=== PATIENT | male | born 1955 | race American Indian/Alaskan Native ===

== ENCOUNTER 2017-04-22 16:05 | Emergency (ER) | payer MEDICARE ==
[2017-04-22 17:07] LABS: Hematocrit 40.2 % (35.5-45.6); Hemoglobin 12.7 gm/dl (11.8-15.2); Mean Corpuscular HGB Conc 32 % (32-34); Mean Corpuscular Hemoglobin 27 pg (28-32); Mean Corpuscular Volume 85 fl (84-94); Platelet Count 284 K/mm3 (140-440); Red Blood Count 4.71 M/mm3 (3.65-5.03); White Blood Count 15.7 K/mm3 (4.5-11.0)
[2017-04-22 17:10] LABS: Red Cell Distribution Width 21.3 % (13.2-15.2)
[2017-04-22 17:16] LABS: INR 1.08 (0.87-1.13)
[2017-04-22 17:17] LABS: Partial Thromboplastin Time 33.2 Sec. (24.2-36.6)
[2017-04-22 17:18] LABS: Anion Gap 20 mmol/L; BUN/Creatinine Ratio 11.11; Blood Urea Nitrogen 10 mg/dL (9-20); Calcium 9.9 mg/dL (8.4-10.2); Carbon Dioxide 24 mmol/L (22-30); Chloride 98.9 mmol/L (98-107); Glucose 201 mg/dL (75-100); Potassium 4.4 mmol/L (3.6-5.0); Sodium 138 mmol/L (137-145)
--- NOTE | 2017-04-22 17:38 | Cat Scan Report ---
FINAL REPORT EXAM: CT CHEST WO CON HISTORY: sob/swelling/pain to L rib area TECHNIQUE: CT of chest without IV contrast. Coronal and sagittal reconstructed images provided. PRIORS: CT abdomen and pelvis November 15, 2016. FINDINGS: No pneumothorax. No effusion. No consolidation. No endobronchial lesion. Subtle areas of interseptal thickening and ground-glass opacities in the dependent areas of the lung bases. Small cystic changes in the left lower lung. [id number] centrilobular emphysema. Main pulmonary arteries are unremarkable. No aortic aneurysm. Heart size unremarkable. No pericardial effusion. A few prominent subcentimeter mediastinal lymph nodes. One of the larger lymph nodes measures 10 x 10 mm. Slightly dense lymph node in the mediastinum on series 2:101 measures 12 x 10 mm. No significant adenopathy. No mass. Hilar regions are relatively unremarkable. Images of the esophagus are unremarkable. Low-density lesion in the left liver on series 2:211 measures 25 x 19 mm. Another low-density lesion in the left liver on series 2:240 measures 9.3 mm. Lesions are unchanged compared to the prior. Low-density cortical lesion in the upper right kidney measures 12 mm. Nodular hyperplasia of both adrenal glands noted. Attenuation suggest adenomas. Series 200:108 and series 2:177 demonstrates asymmetrical larger and of the left serratus muscles with heterogeneous internal attenuation. Overall size measures 13 x 29 x 40 mm. No fluid collection identified. No rim enhancing fluid collection noted. No adjacent rib fractures or bony destruction is evident. Prominent right breast lymph node on series 2:33 measures 11 x 6 mm. Few right thoracic lymph nodes also noted measuring 8 x 7 mm. In the tail the pancreas on series 2:216 there is a complex cystic lesion with internal septations measuring 26 x 32 mm. This lesion is smaller compared to the prior. Previously seen pancreatic cystic lesion not clearly evident on this CT scan. No suspicious osseous lesions on this limited examination of the skeleton. Metastatic disease better evaluated with bone scan. Degenerative changes are present in the spine. IMPRESSION: Asymmetrical enlargement of the left surround this musculature. Findings are indeterminate and may represent an intramuscular contusion, hematoma, myositis, or malignancy. Minimal pneumonitis suspected in the dependent areas of both lung bases. Emphysema. Few prominent right axillary and right thoracic lymph nodes. Few prominent subcentimeter mediastinal lymph nodes. Overall nonspecific. Nonspecific low-density lesions in the liver. Stable compared to the prior. Nodular hyperplasia of both adrenal glands suggesting adenomas which appears similar to prior. Complex cystic lesion in the tail the pancreas. Decreased size compared to prior but indeterminate
[2017-04-22 17:53] LABS: Basophils % (Manual) 0 % (0.0-1.8); Blastocytes % (Manual) 0 %; Eosinophils % (Manual) 0 % (0.0-4.3)
[2017-04-22 17:54] LABS: Anisocytosis 1+; Diff Status Complete; Platelet Estimate Cons
[2017-04-22 18:41] LABS: Alanine Aminotransferase 14 units/L (7-56); Albumin 4.1 g/dL (3.9-5); Albumin/Globulin Ratio 1.2 %; Alkaline Phosphatase 128 units/L (35-129); Creatine Kinase 255 units/L (55-170); Total Protein 7.4 g/dL (6.3-8.2)
[2017-04-22] MEDS ORDERED: DILAUDID IV ONE (18:44)
[2017-04-22] MEDS ORDERED: NACL 0.9% 1000 ML 1,000 ML IV ONE (18:45)
[2017-04-22 18:49] LABS: Bilirubin,Direct < 0.2 mg/dL (0-0.2)
[2017-04-22] MEDS ORDERED: NACL ONE (19:06)
--- NOTE | 2017-04-22 20:10 | Emergency Department Report ---
ED General Adult HPI - General Chief complaint: Pain General Stated complaint: SWELLING ON L SIDE Time Seen by Provider: 04/22/17 18:45 Source: patient Mode of arrival: Ambulatory Limitations: No Limitations - History of Present Illness Initial comments: Pt is a 62 yr old male with a h/o HTN, chronic pancreatitis, and DM who presents with a mass to the left upper back. Pt reports he was just sitting watching TV when he noticed this forming mass right by his scapula. Pt denies any trauma or anticoagulants. Pt has never had any mass in this area before. Upon arrival at approximately 1600 it was the size of an acorn, now at 2013 it is approximately the size of a grapefruit. Otherwise no fevers, chills. ZAMORA, NVD , abd pain, SOB, chest pain, midline back pain, urinary or bowel incontinence, travel, or sick contacts. Severity scale (0 -10): 7 - Related Data Home Medications Medication Instructions Recorded Confirmed Last Taken Metformin HCl [Glucophage] 1,000 mg PO BID 04/22/17 04/22/17 Unknown Previous Rx's Medication Instructions Recorded Last Taken Type Acetaminophen [Acetaminophen TAB] 650 mg PO Q4H PRN #60 tablet 11/19/16 Unknown Rx Metoprolol [Lopressor TAB] 50 mg PO BID #60 tablet 11/19/16 Unknown Rx amLODIPine [Norvasc] 5 mg PO QDAY #30 tablet 11/19/16 Unknown Rx traMADol [Ultram 50 MG tab] 50 mg PO Q6HR PRN #30 tablet 11/19/16 Unknown Rx Allergies Allergy/AdvReac Type Severity Reaction Status Date / Time morphine Allergy Unknown Verified 11/02/16 07:08 ED Review of Systems ROS: Stated complaint: SWELLING ON L SIDE Other details as noted in HPI Comment: All other systems reviewed and negative ED Past Medical Hx - Past Medical History Hx Hypertension: Yes Hx Diabetes: Yes Hx Arthritis: Yes Additional medical history: pancreatitis - Surgical History Additional Surgical History: right shoulder. Stent placed stomach - Social History Smoking Status: Current Every Day Smoker Substance Use Type: None - Medications Home Medications: Home Medications Medication Instructions Recorded Confirmed Last Taken Type Acetaminophen [Acetaminophen TAB] 650 mg PO Q4H PRN #60 tablet 11/19/16 Unknown Rx Metoprolol [Lopressor TAB] 50 mg PO BID #60 tablet 11/19/16 04/22/17 Unknown Rx amLODIPine [Norvasc] 5 mg PO QDAY #30 tablet 11/19/16 04/22/17 Unknown Rx traMADol [Ultram 50 MG tab] 50 mg PO Q6HR PRN #30 tablet 11/19/16 04/22/17 Unknown Rx Metformin HCl [Glucophage] 1,000 mg PO BID 04/22/17 04/22/17 Unknown History ED Physical Exam - General Limitations: No Limitations General appearance: alert, in no apparent distress - Head Head exam: Present: atraumatic, normocephalic - Eye Eye exam: Present: normal appearance - ENT ENT exam: Present: mucous membranes moist - Neck Neck exam: Present: normal inspection - Respiratory Respiratory exam: Present: normal lung sounds bilaterally. Absent: respiratory distress - Cardiovascular Cardiovascular Exam: Present: regular rate, normal rhythm. Absent: systolic murmur, diastolic murmur, rubs, gallop - GI/Abdominal GI/Abdominal exam: Present: soft, normal bowel sounds - Rectal Rectal exam: Present: deferred - Extremities Exam Extremities exam: Present: normal inspection - Back Exam Back exam: Present: full ROM, tenderness (over the enlarged mass over the serratus muscle on the left . Firm, tender, no bruit, or pulsatile mass palpated ) - Neurological Exam Neurological exam: Present: alert, oriented X3 - Psychiatric Psychiatric exam: Present: normal affect, normal mood - Skin Skin exam: Present: warm, dry, intact, normal color. Absent: rash ED Course Vital Signs 04/22/17 04/22/17 04/22/17 16:15 18:53 19:00 Temperature 98.1 F Pulse Rate 87 73 Respiratory 16 17 Rate Blood Pressure 169/104 147/82 O2 Sat by Pulse 100 99 100 Oximetry 04/22/17 04/22/17 04/22/17 21:30 21:31 21:33 Temperature Pulse Rate 72 76 69 Respiratory 17 20 13 Rate Blood Pressure 146/94 146/94 O2 Sat by Pulse 96 98 Oximetry 04/22/17 04/22/17 04/22/17 21:35 21:37 21:39 Temperature Pulse Rate 70 71 72 Respiratory 14 14 19 Rate Blood Pressure 146/94 146/94 146/94 O2 Sat by Pulse 97 96 97 Oximetry 04/22/17 04/22/17 04/22/17 21:41 21:43 21:45 Temperature Pulse Rate 74 70 71 Respiratory 13 19 18 Rate Blood Pressure 146/94 146/94 146/94 O2 Sat by Pulse 96 96 94 Oximetry 04/22/17 04/22/17 04/22/17 21:47 21:49 21:51 Temperature Pulse Rate 75 71 84 Respiratory 14 15 18 Rate Blood Pressure 146/94 146/94 146/94 O2 Sat by Pulse 96 96 97 Oximetry 04/22/17 04/22/17 04/22/17 21:53 21:55 21:57 Temperature Pulse Rate 68 69 66 Respiratory 14 15 14 Rate Blood Pressure 146/94 146/94 146/94 O2 Sat by Pulse 97 96 96 Oximetry 04/22/17 21:59 Temperature Pulse Rate 64 Respiratory 17 Rate Blood Pressure 146/94 O2 Sat by Pulse 96 Oximetry ED Medical Decision Making - Lab Data Result diagrams: 04/22/17 16:45 04/22/17 16:45 - EKG Data -: EKG Interpreted by Az - EKG Data 04/22/17 20:15 Time 1628. Normal sinus rhythm at 70 bpm, QTC 426 ms, normal axis, no LVH, no ST changes, no STEMI - Radiology Data Radiology results: report reviewed CT Chest with con: (+) expanding hematoma of L posterior chest wall, non- arterial, likely venous intercostal vessel - Medical Decision Making Pt's hematoma is expanding. Sean bandage applied, patient placed onto the dependent side of the hematoma to help with hemostasis and pressure. Case d/w [facility], no ICU beds available Case d/w [facility], Dr Mckeon, agree to see patient in the ED. Will do ED to ED transfer to [facility]. Critical care attestation.: If time is entered above; I have spent that time in minutes in the direct care of this critically ill patient, excluding procedure time. ED Disposition Clinical Impression: Hematoma, Back pain Disposition: DC/TX ANOTHER TYPE HEALTHCARE Is pt being admited?: No Condition: Fair
--- NOTE | 2017-04-22 21:12 | Cat Scan Report ---
FINAL REPORT EXAM: CT CHEST W CON HISTORY: expanding hematoma left flank/below scapula TECHNIQUE: Standard enhanced CT of the chest at 1.25 mm axial increments. Coronal and sagittal reconstruction was also obtained. Contrast: IV contrast given PRIORS: CT chest 04/22/2017 at 1643 hours FINDINGS: In the left lateral chest wall, there is a mildly hyperdense hematoma within the muscle layers overlying the ribs. Compared to previous, this now extends from the level of the left axilla to the level of the left diaphragm suggesting interval active hemorrhage. No focal arterial extravasation of contrast is identified to suggest a location of the hemorrhage however. Therefore, findings suggest a probable intercostal venous hemorrhage, the etiology which is uncertain. No evidence for adjacent acute rib fracture is seen. No abnormal mass is seen in the region on the prior exam. The underlying lung parenchyma is expanded and clear with no evidence for parenchymal nodules, infiltrates, vascular congestion, pleural effusion, or pneumothorax. Mild emphysematous changes are again noted. There is no evidence for mediastinal, hilar, or axillary adenopathy. The esophagus is collapsed. The trachea is midline. Cardiovascular structures are within normal limits. Cardiac size and aorta are normal. Bony structures show no focal abnormalities. No evidence for bony fracture is seen. IMPRESSION: Expanding hematoma overlying the left lateral chest wall of uncertain etiology. As no evidence for active arterial extravasation during contrast injection is seen, an intercostal venous bleed is suspected.
--- NOTE | 2017-04-22 21:24 | Cat Scan Report ---
FINAL REPORT EXAM: CT ABDOMEN PELVIS W CON HISTORY: expanding hematoma left flank/below scapula TECHNIQUE: Standard enhanced CT of the abdomen and pelvis. Delayed images through the abdomen and pelvis were obtained. coronal and sagittal reconstruction was also performed. Contrast: IV contrast given PRIORS: CT a/P 11/15/2016 and 11/02/2016 FINDINGS: This patient has a history of hemorrhage over the left lateral chest wall. The recent hemorrhage can be identified in the intercostal muscle layers over the lower thorax on the left. This measures 4.3 x 14.7 cm (axial image 348). There are numerous low-density rounded cystic foci involving the pancreatic head, tail, and uncinate process. When compared to 11/02/2016, these are smaller in size and reduced in number. There is been interval clearance of many cystic foci around the body of the pancreas and in the region of the ruben hepatis. The complex at the level of the pancreatic tail measures 2.7 x 3.1 cm (axial image 16, series 4) the cyst near the uncinate process measures 1.7 x 1.4 cm (axial image 25, series 4). Multiple cysts in the left lobe of the liver are again noted and stable. Neither of these foci cysts demonstrate significant internal or peripheral enhancement with delayed imaging, therefore favoring cysts rather than hemangiomas. A single cyst in the medial right kidney is stable. Nodular appearance of both adrenal glands is stable Otherwise, within the abdomen, the spleen, gallbladder, and left kidney are unremarkable. No evidence for retroperitoneal or pelvic lymphadenopathy is seen. The bowel loops have normal caliber. Moderate stool is present throughout the colon. A few scattered diverticuli are also noted. No fluid collection, inflammatory change, or free air is seen within the abdomen or pelvis. The appendix is normal. Moderate calcification of the aorta is seen. Within the pelvis, the bladder is unremarkable. The prostate is normal. No evidence for mass or lymphadenopathy is seen in the pelvis. Bony structures show no evidence for acute fracture. Multiple remote rib fractures posteriorly in the left lower ribs are seen. Severe degenerative disc narrowing at L4-L5 is seen with osteophytic bridging posteriorly at this level.. IMPRESSION: 1. Hemorrhage overlying the left lateral chest wall is better evaluated on the accompanying CT chest 2. no acute intra-abdominal process noted. 3. Multiple hypodense cystic foci in the head and tail of the pancreas. However, these are smaller in size and reduced in number compared to previous. 4. Stable hypodensities in the left lobe of the liver and right kidney, probably cysts. 5. No evidence for acute fracture.
--- NOTE | 2017-04-22 22:07 | Event Note ---
Date: 04/22/17 62 year old male with expanding left flank hematoma. CT scan demonstrating no active extravasation suggesting venous etiology. No history of trauma, thoracentesis, or recent biopsy. INR and platlets nl. No tachycardia or hypotension. Recommend transfer to center with thoracic surgery. In the interim, recommend pressure dressing on left flank and have patient in left lateral decubitus position. In the interim, recommend CT angiography of the chest, and abdomen in the AM if has not been transfered. In the interim, recommend H&H at least daily, probably q4-6H. Transfuse as needed to keep H&H greater than 8.
[2017-04-22] MEDS ORDERED: SUBLIMAZE IV ONE (22:30)
[2017-04-22 23:04] VITALS: BP 146/90
== END 2017-04-22 23:05 | disposition other institution (70) ==
LOC: ED 16:05
DX: M79.81 Nontraumatic hematoma of soft tissue (principal); M54.89 Other dorsalgia; E11.9 Type 2 diabetes mellitus without complications; M19.90 Unspecified osteoarthritis, unspecified site; I10 Essential (primary) hypertension; F17.200 Nicotine dependence, unspecified, uncomplicated; Z88.5 Allergy status to narcotic agent; K86.1 Other chronic pancreatitis
CPT/HCPCS: 36415; 71250; 71260; 74177; 80048; 80074; 82550; 84484; 85007; 85025; 85610; 85730; 86850; 86900; 86901; 93005; 93010; 96361; 96374; 96375; 99285; J1170; J3010; J7030; Q9967

== ENCOUNTER 2018-04-22 09:52 | Emergency (ER) | payer MEDICARE ==
--- NOTE | 2018-04-22 11:51 | Emergency Department Report ---
ED Fall HPI - General Chief Complaint: Fall Stated Complaint: FALL Time Seen by Provider: 04/22/18 11:48 Source: patient, EMS Mode of arrival: Stretcher - History of Present Illness Initial Comments: 63-year-old male that presents emergency room with complaints of headache and neck pain after a slip and fall in his bathroom. Patient states that he has a knot on the back of his head. Patient states the pain is 7 out of 10. Patient states he does not believe he lost consciousness but is not completely sure.. Patient denies any other pain or physical complaints except for headache and neck pain. Patient is A&0 4. Patient denies symptoms prior to slip and fall. Patient denies syncopal episode. -: Sudden Fall From: standing When Fall Occurred: 1 hour [employer] Fall Witnessed: no Place Fall Occurred: home Loss of Consciousness: unsure Prolonged Down Time?: no Symptoms Prior to Fall: none Location: head, neck Severity: severe Severity scale (0 -10): 7 Quality: stabbing Context: tripped/slipped Associated Symptoms: headache, neck pain. denies: numbness, weakness, chest paint, shortness of breath, abdominal pain, hematuria, unable to walk, lightheaded, vertigo, confusion - Related Data Home Medications Medication Instructions Recorded Confirmed Last Taken Metformin HCl [Glucophage] 1,000 mg PO BID 04/22/17 04/22/17 Unknown Previous Rx's Medication Instructions Recorded Last Taken Type Acetaminophen [Acetaminophen TAB] 650 mg PO Q4H PRN #60 tablet 11/19/16 Unknown Rx Metoprolol [Lopressor TAB] 50 mg PO BID #60 tablet 11/19/16 Unknown Rx amLODIPine [Norvasc] 5 mg PO QDAY #30 tablet 11/19/16 Unknown Rx traMADol [Ultram 50 MG tab] 50 mg PO Q6HR PRN #30 tablet 11/19/16 Unknown Rx Azithromycin [Zithromax Tri-Donis] 500 mg PO DAILY 3 Days #3 tablet 04/22/18 Unknown Rx Allergies Allergy/AdvReac Type Severity Reaction Status Date / Time morphine Allergy Unknown Verified 11/02/16 07:08 ED Review of Systems ROS: Stated complaint: FALL Other details as noted in HPI Constitutional: denies: chills, fever Eyes: denies: eye pain, eye discharge, vision change ENT: denies: ear pain, throat pain Respiratory: denies: cough, shortness of breath, wheezing Cardiovascular: denies: chest pain, palpitations Endocrine: no symptoms reported Gastrointestinal: denies: abdominal pain, nausea, diarrhea Genitourinary: denies: urgency, dysuria Musculoskeletal: denies: back pain, joint swelling, arthralgia Skin: denies: rash, lesions Neurological: headache. denies: weakness, paresthesias Psychiatric: denies: anxiety, depression Hematological/Lymphatic: denies: easy bleeding, easy bruising ED Past Medical Hx - Past Medical History Previous Medical History?: Yes Hx Hypertension: Yes Hx Diabetes: Yes Hx Arthritis: Yes Additional medical history: pancreatitis - Surgical History Past Surgical History?: Yes Additional Surgical History: right shoulder. Stent placed stomach - Family History Family history: no significant - Social History Smoking Status: Current Every Day Smoker Substance Use Type: Alcohol - Medications Home Medications: Home Medications Medication Instructions Recorded Confirmed Last Taken Type Acetaminophen [Acetaminophen TAB] 650 mg PO Q4H PRN #60 tablet 11/19/16 Unknown Rx Metoprolol [Lopressor TAB] 50 mg PO BID #60 tablet 11/19/16 04/22/17 Unknown Rx amLODIPine [Norvasc] 5 mg PO QDAY #30 tablet 11/19/16 04/22/17 Unknown Rx traMADol [Ultram 50 MG tab] 50 mg PO Q6HR PRN #30 tablet 11/19/16 04/22/17 Unknown Rx Metformin HCl [Glucophage] 1,000 mg PO BID 04/22/17 04/22/17 Unknown History Azithromycin [Zithromax Tri-Donis] 500 mg PO DAILY 3 Days #3 tablet 04/22/18 Unknown Rx ED Physical Exam - General Limitations: No Limitations General appearance: alert, in no apparent distress - Head Head exam: Present: atraumatic, normocephalic - Eye Eye exam: Present: normal appearance - ENT ENT exam: Present: mucous membranes moist - Neck Neck exam: Present: normal inspection - Respiratory Respiratory exam: Present: normal lung sounds bilaterally. Absent: respiratory distress - Cardiovascular Cardiovascular Exam: Present: regular rate, normal rhythm. Absent: systolic murmur, diastolic murmur, rubs, gallop - GI/Abdominal GI/Abdominal exam: Present: soft, normal bowel sounds - Rectal Rectal exam: Present: deferred - Extremities Exam Extremities exam: Present: normal inspection - Back Exam Back exam: Present: normal inspection - Neurological Exam Neurological exam: Present: alert, oriented X3 - Psychiatric Psychiatric exam: Present: normal affect, normal mood - Skin Skin exam: Present: warm, dry, normal color, abrasion (brace noted to the posterior head. Bleeding controlled.). Absent: rash ED Course Vital Signs 04/22/18 04/22/18 12:55 13:30 Temperature 97.5 F L Pulse Rate 98 H Respiratory 18 16 Rate Blood Pressure 154/91 [Right] O2 Sat by Pulse 98 Oximetry - Reevaluation(s) Reevaluation #1: CT head and neck negative for acute findings. Patient stable for discharge. 04/22/18 13:43 Reevaluation #2: After discussing all results patient patient states that he's had a cough proximal for 2 weeks now and has not taken any antibiotics for this. Patient's lungs are clear to auscultation. Will give patient a Z-Donis and have him follow- up with his primary care 04/22/18 13:45 Reevaluation #3: Wound care for her scalp abrasion given to patient. 04/22/18 13:53 ED Medical Decision Making - Lab Data Result diagrams: 04/22/18 12:37 04/22/18 12:37 - Radiology Data Discussed results of CT head and CT C-spine with radiologist. Radiologist stated that they were both negative for acute findings - Medical Decision Making 63-year-old male that presented to the emergency room with a fall after slipping in his bathroom where he hit his head on the floor. CT head normal CT C-spine normal patient also found to have an abrasion to the occipital area of his scalp. Site is closed and bleeding is controlled - Differential Diagnosis marr. head injury. neck pain Critical care attestation.: If time is entered above; I have spent that time in minutes in the direct care of this critically ill patient, excluding procedure time. ED Disposition Clinical Impression: Neck pain, Cough Head injury Qualifiers: Encounter type: initial encounter Qualified Code(s): S09.90XA - Unspecified injury of head, initial encounter Fall Qualifiers: Encounter type: initial encounter Qualified Code(s): W19.XXXA - Unspecified fall, initial encounter Headache Qualifiers: Headache type: post-traumatic Headache chronicity pattern: acute headache Scalp abrasion Qualifiers: Encounter type: initial encounter Qualified Code(s): S00.01XA - Abrasion of scalp, initial encounter Disposition: TO HOME OR SELFCARE Is pt being admited?: No Does the pt Need Aspirin: No Condition: Stable Instructions: Concussion (ED), Minor Head Injury (ED), Cervical Sprain (ED) Additional Instructions: Follow-up primary care in 3-5 days. Patient to return to ER if condition worsens. Patient to take meds as directed. Patient to rest. Patient to avoid strenuous activity and still cleared by primary care. To take Tylenol or ibuprofen when necessary for pain Prescriptions: Azithromycin [Zithromax Tri-Donis] 500 mg PO DAILY 3 Days #3 tablet Referrals: PRIMARY CARE,MD [Primary Care Provider] - 3-5 Days Time of Disposition: 13:49
[2018-04-22 12:57] LABS: BUN/Creatinine Ratio 10; Blood Urea Nitrogen 6 mg/dL (9-20); Calcium 9.8 mg/dL (8.4-10.2); Hemolysis Index 12
[2018-04-22 12:58] VITALS: BP 154/91
[2018-04-22 13:09] LABS: Hematocrit 45.8 % (35.5-45.6); Hemoglobin 14.6 gm/dl (11.8-15.2); Mean Corpuscular HGB Conc 32 % (32-34); Mean Corpuscular Hemoglobin 28 pg (28-32); Mean Corpuscular Volume 89 fl (84-94); Platelet Count 351 K/mm3 (140-440); Red Blood Count 5.16 M/mm3 (3.65-5.03); Red Cell Distribution Width 16.4 % (13.2-15.2)
== END 2018-04-22 14:07 | disposition home or self-care (01) ==
LOC: ED 09:52
DX: S00.01XA Abrasion of scalp, initial encounter (principal); M54.2 Cervicalgia; R05 Cough; I10 Essential (primary) hypertension; E11.9 Type 2 diabetes mellitus without complications; M19.90 Unspecified osteoarthritis, unspecified site; Z88.6 Allergy status to analgesic agent; F17.200 Nicotine dependence, unspecified, uncomplicated; W01.0XXA Fall on same level from slipping, tripping and stumbling without subsequent striking against object, initial encounter; Y93.89 Activity, other specified; Y92.002 Bathroom of unspecified non-institutional (private) residence as the place of occurrence of the external cause; Y99.8 Other external cause status
CPT/HCPCS: 36415; 70450; 72125; 80048; 85027; 99284

== ENCOUNTER 2021-09-12 03:55 | Emergency (ER) | payer MEDICARE ==
[2021-09-12] MEDS ORDERED: DEXTROSE 50% IN WATER (25GM) 50 ML SYRINGE IV ONE ×2 (03:57→03:58)
--- NOTE | 2021-09-12 04:07 | Emergency Department Report ---
ED General Adult HPI - General Chief complaint: Hypoglycemia Stated complaint: LOW BLOOD SUGAR PUI?: No Time Seen by Provider: 09/12/21 04:03 Source: patient, EMS Mode of arrival: Stretcher Limitations: No Limitations - History of Present Illness Initial comments: Patient is a 66-year-old male who presents emergency room for hyperglycemia. Patient brought in by EMS. EMS states the patient's blood sugar was 21. Patient received D50 from EMS and the blood sugar is now 191. Patient normally gets 30 units of Lantus and the gave 30 units of regular insulin by accident. Patient complains of weakness. Patient denies pain. Patient complains of fatigue. Patient denies recent travel. Patient denies recent international travel. Patient denies exposure to the novel coronavirus. Patient denies sick contacts. Patient denies fever and chills. Patient denies cough. Patient denies diarrhea. Patient denies coming in contact with anybody with symptoms of the novel coronavirus. -: Sudden Consistency: constant Improves with: medication, rest Worsens with: movement Associated Symptoms: confusion, malaise, weakness. denies: chest pain, cough, diaphoresis, fever/chills, headaches, loss of appetite, nausea/vomiting, rash, seizure, shortness of breath, syncope - Related Data Home Medications Medication Instructions Recorded Confirmed Last Taken Metformin HCl [Glucophage] 1,000 mg PO BID 04/22/17 04/22/17 Unknown Previous Rx's Medication Instructions Recorded Last Taken Type Acetaminophen [Acetaminophen TAB] 650 mg PO Q4H PRN #60 tablet 11/19/16 Unknown Rx Metoprolol [Lopressor TAB] 50 mg PO BID #60 tablet 11/19/16 Unknown Rx amLODIPine 5 mg PO QDAY #30 tablet 11/19/16 Unknown Rx traMADoL [Ultram 50 MG tab] 50 mg PO Q6HR PRN #30 tablet 11/19/16 Unknown Rx Azithromycin [Zithromax Tri-Donis] 500 mg PO DAILY 3 Days #3 tablet 04/22/18 Unknown Rx Allergies Allergy/AdvReac Type Severity Reaction Status Date / Time morphine Allergy Unknown Verified 09/12/21 04:25 ED Review of Systems ROS: Stated complaint: LOW BLOOD SUGAR Other details as noted in HPI Constitutional: malaise, weakness. denies: chills, fever Eyes: denies: eye pain, eye discharge, vision change ENT: denies: ear pain, throat pain Respiratory: denies: cough, shortness of breath, wheezing Cardiovascular: denies: chest pain, palpitations Endocrine: no symptoms reported Gastrointestinal: denies: abdominal pain, nausea, diarrhea Genitourinary: denies: urgency, dysuria Musculoskeletal: denies: back pain, joint swelling, arthralgia Skin: denies: rash, lesions Neurological: as per HPI, weakness, confusion. denies: headache, paresthesias Psychiatric: denies: anxiety, depression Hematological/Lymphatic: denies: easy bleeding, easy bruising ED Past Medical Hx - Past Medical History Previous Medical History?: Yes Hx Hypertension: Yes Hx Diabetes: Yes Hx Arthritis: Yes Additional medical history: pancreatitis - Surgical History Past Surgical History?: Yes Additional Surgical History: right shoulder. Stent placed stomach - Family History Family history: no significant - Social History Smoking Status: Current Every Day Smoker Substance Use Type: Alcohol - Medications Home Medications: Home Medications Medication Instructions Recorded Confirmed Last Taken Type Acetaminophen [Acetaminophen TAB] 650 mg PO Q4H PRN #60 tablet 11/19/16 04/22/17 Unknown Rx Metoprolol [Lopressor TAB] 50 mg PO BID #60 tablet 11/19/16 04/22/17 Unknown Rx amLODIPine 5 mg PO QDAY #30 tablet 11/19/16 04/22/17 Unknown Rx traMADoL [Ultram 50 MG tab] 50 mg PO Q6HR PRN #30 tablet 11/19/16 04/22/17 Unknown Rx Metformin HCl [Glucophage] 1,000 mg PO BID 04/22/17 04/22/17 Unknown History Azithromycin [Zithromax Tri-Donis] 500 mg PO DAILY 3 Days #3 tablet 04/22/18 Unknown Rx ED Physical Exam - General General appearance: alert, in no apparent distress - Head Head exam: Present: atraumatic, normocephalic - Eye Eye exam: Present: normal appearance - ENT ENT exam: Present: mucous membranes moist - Neck Neck exam: Present: normal inspection - Respiratory Respiratory exam: Present: normal lung sounds bilaterally. Absent: respiratory distress - Cardiovascular Cardiovascular Exam: Present: regular rate, normal rhythm. Absent: systolic murmur, diastolic murmur, rubs, gallop - GI/Abdominal GI/Abdominal exam: Present: soft, normal bowel sounds - Rectal Rectal exam: Present: deferred - Extremities Exam Extremities exam: Present: normal inspection - Back Exam Back exam: Present: normal inspection - Neurological Exam Neurological exam: Present: alert, oriented X3 - Psychiatric Psychiatric exam: Present: normal affect, normal mood - Skin Skin exam: Present: warm, dry, intact, normal color. Absent: rash ED Course Vital Signs 09/12/21 04:44 Pulse Rate 67 Respiratory 20 Rate Blood Pressure 126/84 [Right] O2 Sat by Pulse 94 Oximetry - Reevaluation(s) Reevaluation #1: Patient is more alert. Patient answering questions appropriately. Patient denies pain. 09/12/21 05:12 Reevaluation #2: Patient's sugars remained stable in the ER. Patient sugars above 200. Patient instructed to patient sent to the insulin that he is using at home. I discussed all results and clinical findings with patient. I discussed plan of care with patient. Patient agrees with plan of care. Patient is stable for discharge. Patient will be discharged home. Patient given discharge instructions. Patient voiced understanding of discharge instructions. 09/12/21 06:12 ED Medical Decision Making - Lab Data Result diagrams: 09/12/21 04:11 09/12/21 04:11 - Medical Decision Making Patient is a 66-year-old male who presents emergency room for hyperglycemia. Rajat santana's actually injected 30 units of regular insulin versus 30 units of his long-acting nighttime insulin. Patient brought in by EMS. Patient's initial sugar was 21. Patient was given D50 and increased to 191. Patient's blood sugar stayed above 150 the entire time in the ER. Patient tolerated p.o. intake. Patient had labs done which were essentially unremarkable. Patient being discharged hyperglycemic. Patient instructed to pay attention to the type of insulin prior to giving. Patient given full insulin instructions. Patient stable for discharge. Patient not require inpatient services. Patient not require further emergency medical service. I discussed all results and clinical findings with patient. I discussed plan of care with patient. Patient agrees with plan of care. Patient is stable for discharge. Patient will be discharged home. Patient given discharge instr uctions. Patient voiced understanding of discharge instructions. - Differential Diagnosis Hypoglycemia, medication error. Critical care attestation.: If time is entered above; I have spent that time in minutes in the direct care of this critically ill patient, excluding procedure time. ED Disposition Clinical Impression: Medication error, Hypoglycemia, Hyponatremia, Diabetes mellitus type 2 in nonobese Disposition: 01 HOME / SELF CARE / HOMELESS Is pt being admited?: No Does the pt Need Aspirin: No Condition: Stable Instructions: Diabetes Mellitus Type 2 in Adults (ED), Form - Daily Diabetes Record, Hypoglycemia, Type 2 Diabetes Mellitus, Self Care, Adult Additional Instructions: Patient to follow-up with primary care in 2 to 3 days. Patient to follow-up with shipping support clerk in 2 to 3 days. Patient to rest. Patient to increase water. Patient to monitor blood sugar at home. Patient to keep a blood sugar log. Patient to take blood sugar log to all follow appointments. Patient to eat a heart healthy and diabetic diet. Patient to use the correct insulin as instructed by his outpatient physicians. Patient continue all medications. Patient to return to the ER if condition worsens, changes or new symptoms arise. Referrals: PRIMARY CARE, [Primary Care Provider] - 2-3 Days Time of Disposition: 06:15
[2021-09-12 04:35] LABS: Red Blood Count 5.34 M/mm3 (3.65-5.03)
[2021-09-12 04:36] LABS: Hematocrit 40.1 % (35.5-45.6); Hemoglobin 12.8 gm/dl (11.8-15.2); Mean Corpuscular HGB Conc 32 % (32-34); Mean Corpuscular Volume 75 fl (84-94); Platelet Count 400 K/mm3 (140-440); Red Cell Distribution Width 22.5 % (13.2-15.2)
[2021-09-12 04:54] LABS: Alanine Aminotransferase 54 units/L (7-56); Albumin 4.1 g/dL (3.9-5); Blood Urea Nitrogen 4 mg/dL (9-20); Calcium 9.7 mg/dL (8.4-10.2); Hemolysis Index 43
[2021-09-12 04:57] LABS: BUN/Creatinine Ratio 7
[2021-09-12 07:23] VITALS: BP 127/79
== END 2021-09-12 06:45 | disposition home or self-care (01) ==
LOC: ED 03:55
DX: E87.1 Hypo-osmolality and hyponatremia (principal); E11.649 Type 2 diabetes mellitus with hypoglycemia without coma; T38.3X5A Adverse effect of insulin and oral hypoglycemic [antidiabetic] drugs, initial encounter; I10 Essential (primary) hypertension; M19.90 Unspecified osteoarthritis, unspecified site; Z98.890 Other specified postprocedural states; F17.200 Nicotine dependence, unspecified, uncomplicated; Y92.89 Other specified places as the place of occurrence of the external cause; Z88.5 Allergy status to narcotic agent
CPT/HCPCS: 36415; 80053; 82962; 85027; 99284